=== PATIENT | female | born 1940 | race Caucasian/White ===

== ENCOUNTER → 2016-08-30 | Outpatient (CLI) | payer OTHER, MEDICARE ==
[~2016-08-30] VITALS: Ht 162.6 cm; Wt 62.6 kg
[~2016-08-30] MED LIST: ADULT LOW DOSE81 MG PO; ALEVE220 MG PO; AMBIEN 10 MG TA10 MG PO; BUPROPION; COSOPT EYE DROPS5 ML OP; FISHOIL PO; FOSAMAX 70 MG T70 MG PO; HYDROCODONE-AP1 EAC6 PO; IBUPROFEN 200200 M1 PO; MEDROLDOSEPACK PO; MELOXICAM7.5 MG PO; MOBIC7.5 MG PO; NAPROSYN500 MG PO; PAXIL10 MG PO; PAXIL20 MG PO; VITAMIN D1000 UNI1 PO; XANAX 0.5 MG0.5 M1 PO; ZOCOR 20 MG TAB20 M1 PO
[2016-08-30 09:46] VITALS: BP 139/81
== END ==
LOC: PAIN 06:55
DX: M54.5 Low back pain (principal); Z90.49 Acquired absence of other specified parts of digestive tract; Z90.721 Acquired absence of ovaries, unilateral

== ENCOUNTER → 2016-09-13 | Outpatient (CLI) | payer OTHER, MEDICARE ==
[~2016-09-13] VITALS: Ht 162.6 cm; Wt 63.0 kg
[2016-09-13 09:52] VITALS: BP 148/82
== END ==
LOC: PAIN 07:06
DX: M12.88 Other specific arthropathies, not elsewhere classified, other specified site (principal); Z79.899 Other long term (current) drug therapy

== ENCOUNTER → 2017-12-21 | Outpatient (CLI) | payer OTHER, MEDICARE ==
[~2017-12-21] MED LIST changes: +OSELB75 PO
== END ==
LOC: RAD 14:58
DX: S13.4XXA Sprain of ligaments of cervical spine, initial encounter (principal); M50.322 Other cervical disc degeneration at C5-C6 level; V89.2XXA Person injured in unspecified motor-vehicle accident, traffic, initial encounter; Y93.89 Activity, other specified; Y92.89 Other specified places as the place of occurrence of the external cause; Y99.8 Other external cause status

== ENCOUNTER → 2018-09-03 | Outpatient (CLI) | payer OTHER, MEDICARE ==
--- NOTE | 2018-09-03 09:58 | 2DMMODE ---
[facility] [place] [address] 2 D/M-MODE ECHOCARDIOGRAM Name: PASQUALE SMITH Room #: REG [facility]#: [id number] ������������� Admission: 09/03/18 ������������� Attend Phys: Tenzin Oro Discharge: ��� ������������� ��� Date of : 44 Date of Service: 09/03/18 0957 �� Report #: [id number] �������� ��������������������������������������������[id number] THIS REPORT FOR: //name// APPROVED REPORT Study performed: 09/03/2018 09:25:46 EXAM: Comprehensive 2D, Doppler, and color-flow Echocardiogram Patient Location: Out-Patient Status: routine BSA: 1.67 HR: 87 bpm BP: 126/80 mmHg Rhythm: NSR Other Information Study Quality: Adequate/lung artifact Indications Palpitations 2D Dimensions RVDd: 31.87 mm IVSd: 11.46 (7-11mm) LVOT Diam: 20.26 (18-24mm) LVDd: 34.01 mm PWd: 9.92 (7-11mm) Ascending Ao: 25.20 (22-36mm) LVDs: 23.70 (25-40mm) Aortic Root: 28.81 mm Volumes Left Atrial Volume (Systole) Single Plane 4CH: 22.82 mL Single Plane 2CH: 20.55 mL LA ESV Index: 14.00 mL/m2 Aortic Valve AoV Peak Edvin.: 1.06 m/s AO Peak Gr.: 4.47 mmHg LVOT Max P.68 mmHg LVOT Max V: 0.82 m/s CARMINE Vmax: 2.49 cm2 Mitral Valve E/A Ratio: 0.6 MV Decel. Time: 248.45 ms MV E Max Edvin.: 0.53 m/s [facility] [address] [address] 2 D/M-MODE ECHOCARDIOGRAM Name: SARAH,PASQUALE ALBA Room #: [employer]#: [id number] ������������� Admission: 09/03/18 ������������� Attend Phys: Tenzin Oro Discharge: ��� ������������� ��� Date of : 44 Date of Service: 09/03/18 0957 �� Report #: [id number] �������� ��������������������������������������������[id number] MV A Edvin.: 0.85 m/s MV PHT: 72.05 ms IVRT: 100.35 ms Pulmonary Valve PV Peak Edvin.: 0.87 m/s PV Peak Gr.: 3.06 mmHg Pulmonary Vein P Vein S: 0.69 m/s P Vein D: 0.39 m/s P Vein S/D Ratio: 1.77 Tricuspid Valve TR Peak Edvin.: 2.28 m/s RAP Estimate: 5.00 mmHg TR Peak Gr.: 20.80 mmHg PA Pressure: 26.00 mmHg Left Ventricle The left ventricle is normal size. There is normal LV segmental wall motion. There is normal left ventricular wall thickness. Left ventricular systolic function is normal. LVEF is 55-60%. Mild diastolic dysfunction is present (impaired relaxation pattern). Right Ventricle The right ventricle is normal size. The right ventricular systolic function is normal. Atria The left atrium size is normal. The right atrium size is normal. Aortic Valve The aortic valve is normal in structure. No aortic regurgitation is present. There is no aortic valvular stenosis. Mitral Valve The mitral valve is normal in structure. There is no mitral valve regurgitation noted. No evidence of mitral valve stenosis. Tricuspid Valve The tricuspid valve is normal in structure. Trace tricuspid regurgitation. Estimated PAP is 25mmHg. Pulmonic Valve The pulmonary valve is normal in structure. Trace pulmonic [facility] [address] [address] 2 D/M-MODE ECHOCARDIOGRAM Name: PASQUALE SMITH [id number] ������������� Admission: 09/03/18 ������������� Attend Phys: Tenzin Oro Discharge: ��� ������������� ��� Date of : 44 Date of Service: 09/03/18 0957 �� Report #: [id number] �������� ��������������������������������������������[id number] regurgitation. Great Vessels The aortic root is normal in size. The ascending aorta is normal in size. IVC is normal in size and collapses >50% with inspiration. Pericardium There is no pericardial effusion. <Conclusion> Left ventricular systolic function is normal. There is normal LV segmental wall motion. LVEF is 55-60%. Mild diastolic dysfunction Structural valvular disease was absent. No significant regurgitant or stenotic lesions. Trace tricuspid regurgitation. Estimated pulmonary artery pressure of 25mmHg. There is no pericardial effusion. ��������������������������������������������� <ELECTRONICALLY SIGNED> ���������������������������������������� By: Jaylan Mcgee MD, [facility] ��������������������������������������������� 09/03/18 0957 6 6 Jaylan Mcgee MD, FAC /INF
== END ==
LOC: CV 09:09
DX: R00.2 Palpitations (principal); Z88.8 Allergy status to other drugs, medicaments and biological substances

== ENCOUNTER 2018-09-17 19:52 | Inpatient (IN) | payer OTHER, MEDICARE ==
[~2018-09-17] VITALS: Ht 154.9 cm; Wt 62.6 kg
[~2018-09-17 19:52] MED LIST changes: -CARDIZEM CD120 MG PO; -DOXYCYCLINE HYC50 MG PO; -HYDROCORTISONE30 G9 TOP; -NORVASC10 MG PO; -OMEPRAZOLE40 MG PO; -PEPCID20 MG PO; -PREDNISONE 20 M20 M1 PO
[2018-09-17 20:21] VITALS: BP 142/57
[2018-09-17] MEDS ORDERED: CARDIZEM CD120 MG PO ×2 (20:27)
[2018-09-17 20:46] LABS: ABSOLUTE NEUTROPHILS 11.9 thou/uL (1.4-8.2); BASOPHILS 0.4 % (0.0-2.0); HEMATOCRIT 34.8 % (37.0-47.0); HEMOGLOBIN 11.8 gm/dL (12.0-15.0); LYMPHOCYTES 5.2 % (24.0-44.0); MCH 31.2 pg (26.0-34.0); MCHC 33.9 g/dL (28.0-37.0); MCV 92.1 fL (80.0-100.0); MONOCYTES 3.4 % (1.0-8.0); PLATELET COUNT 193 thou/uL (150-400); RBC 3.78 mil/uL (4.20-5.00); RDW 13.1 % (10.5-14.5); WBC 13.3 thou/uL (4.0-11.0)
[2018-09-17 20:49] LABS: URINE BILIRUBIN NEGATIVE (Negative); URINE BLOOD 1+ (Negative); URINE CLARITY CLEAR; URINE COLOR YELLOW; URINE GLUCOSE-RANDOM* NEGATIVE (Negative); URINE KETONES NEGATIVE (Negative); URINE LEUKOCYTES-REFLEX NEGATIVE (Negative); URINE NITRITE-REFLEX NEGATIVE (Negative); URINE PROTEIN (DIPSTICK) 2+ (Negative); URINE SPECIFIC GRAVITY 1.025 (1.005-1.035); URINE UROBILINOGEN 0.2 E.U./dl (0.2-1.0)
[2018-09-17 20:54] LABS: CALCIUM 8.9 mg/dL (8.5-10.1); POTASSIUM 3.3 mmol/L (3.5-5.1)
[2018-09-17 21:01] LABS: ALBUMIN 3.2 g/dL (3.4-5.0); TOTAL BILIRUBIN 0.7 mg/dL (<0.1-1.0); TOTAL PROTEIN 6.6 g/dL (6.4-8.2)
[2018-09-17 21:03] LABS: CRYSTALS None Seen /LPF (None Seen); HYALINE CASTS 0-3 Few /LPF (None Seen); SQUAMOUS 4-10 Moderate /LPF (0-3)
[2018-09-17 21:04] LABS: URINE RBC 3-10 Few /HPF (0-2); URINE WBC-REFLEX None Seen /HPF (0-5)
[2018-09-17 22:44] VITALS: BP 123/48
[2018-09-17 23:02] VITALS: BP 136/55
--- NOTE | 2018-09-17 23:37 | NUR ---
PT ARRIVED TO THE UNIT VIA CART ACCOMPANIED BY ED RN, ON ROOM AIR, NO SOB NOTED, VSS ASIDE FROM HEART RATE OF 113,LUNGS CLEAR, PT ALERT/ORIENTED, ADMISSION ASSESSMENT AND HISTORY OBTAINED, WILL PROVIDE WITH DAUGHTER'S PHONE NUMBER TOMORROW, ASSISTED TO THE BATHROOM, GAIT STEADY, VOIDED, GIVEN SANDWICH, TOLERATING IT, DENIES PAIN NOR ITCH TO HER RASHES, ENC TO DRINK MORE WATER, DISCUSSED LAB RESULTS WITH HER, GIVEN ROOM/CALL LIGHT ORIENTATION, COMPLIANT WITH CARE.
[2018-09-18] MEDS ORDERED: CARDIZEM CD120 MG PO ×2 (04:25)
[2018-09-18] MEDS ORDERED: OMEPRAZOLE40 MG PO ×2 (04:27)
[2018-09-18 04:41] VITALS: BP 105/76
[2018-09-18 05:53] LABS: HEMATOCRIT 31.1 % (37.0-47.0); HEMOGLOBIN 10.4 gm/dL (12.0-15.0); MCH 31.2 pg (26.0-34.0); MCHC 33.5 g/dL (28.0-37.0); RBC 3.34 mil/uL (4.20-5.00); RDW 13.6 % (10.5-14.5); WBC 12.3 thou/uL (4.0-11.0)
[2018-09-18 06:02] LABS: CALCIUM 7.7 mg/dL (8.5-10.1); CREATININE 0.9 mg/dL (0.6-1.0); MAGNESIUM 1.7 mg/dL (1.8-2.4)
--- NOTE | 2018-09-18 06:52 | NUR ---
ALL CONSULTS CALLED TO ANSWERING SERVICE.
[2018-09-18 07:24] VITALS: BP 129/73
--- NOTE | 2018-09-18 07:34 | EKG ---
[place] [address] [facility] [place] [address] ELECTROCARDIOGRAM REPORT Name: SARAHPASQUALE WILLIS Room #: 357-P ADM IN M.R.#: [id number] ������������������ Admission: 09/17/18 ������������������ Attend Phys: Esvin Cagle MD Discharge: ������������������ Date of : 44 Report #: [id number] ����������������������������������������������������������������� [id number] THIS REPORT FOR: //name// [facility] ED Test Date: 2018-09-17 Test Time: 20:32:24 Pat Name: PASQUALE SMITH Department: Room: 357 Gender: F [employer]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1940 Requested By: Rudy More Order Number: [id number] MD: Jaylan Mcgee Measurements Intervals [place] Rate: 109 P: 75 MI: 152 QRS: 29 QRSD: 135 T: -45 QT: 324 QTc: 437 Interpretive Statements Sinus tachycardia Right bundle branch block No previous ECG available for comparison Electronically Signed On 09-18-2018 7:34:39 CDT by Jaylan Mcgee [email or web address] ��������������������������������������������� <ELECTRONICALLY SIGNED> ���������������������������������������� By: Jaylan Mcgee MD, [facility] ��������������������������������������������� 09/18/18 0734 31 31 Jaylan Mcgee MD, FACC /EPI
--- NOTE | 2018-09-18 10:46 | NUR ---
Chart reviewed and case discussed with the care team. Pt lives indep with her spouse. 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 She and her spouse recently traveled to [place]. They live in a [place] with no steps. She has insurance in place for f/u care and per pcp is Dr. Hairston. No dc planning needs identified at this time. Derm/ID consults pending. Will remain available should dc needs arise.
[2018-09-18 11:41] VITALS: BP 142/70
[2018-09-18 16:23] VITALS: BP 135/56
--- NOTE | 2018-09-18 18:43 | NUR ---
AAOX4 VERY PLEASANT. STEADY GAIT UP IN ROOM WITH GOOD TOLERATION OF ACTIIVTY. GOOD APPETITE FOR MEALS. IV DISCONTINUED DUE TO INFILTATION. DENIES PAIN. RASH ALL OVER BODY RED NOT RAISED DENIES PAIN OR DISCONFORT.
[2018-09-18 19:15] VITALS: BP 141/66
[2018-09-18 22:07] LABS: COMPLEMENT-C4 27 mg/dL (14-44)
[2018-09-19 00:10] LABS: GLYCOHEMOGLOBIN (HGB A1C) 5.7 % (4.8-5.6)
[2018-09-19 03:45] VITALS: BP 131/58
[2018-09-19 07:11] VITALS: BP 121/69
[2018-09-19] MEDS ORDERED: DOXYCYCLINE HYC50 MG PO ×2 (08:21)
[2018-09-19] MEDS ORDERED: PEPCID20 MG PO ×2 (08:22)
[2018-09-19] MEDS ORDERED: PREDNISONE 20 M20 M1 PO ×2 (08:23)
[2018-09-19] MEDS ORDERED: HYDROCORTISONE30 G9 TOP ×2 (08:24)
[2018-09-19] MEDS ORDERED: NORVASC10 MG PO ×2 (08:25)
[2018-09-19 11:10] LABS: HEMATOLOGY COMMENTS Note: (()); HEMOGLOBIN 10.3 g/dL (11.1-15.9)
[2018-09-19 13:13] LABS: HIV ANTIBODY Non Reactive (Non Reactive)
--- NOTE | 2018-09-19 14:50 | NUR ---
Assumed care of pt at 0700. Pt has been up ad sarah with steady gait in room. Pt's only complaint of pain has been LEIVA which PRN meds were given to treat. Unknown rash remains profuse over extremities and trunk. Pt denies complaints r/t rash. Pt is positive in outlook but anticipating DC. Hospitalist rounded and DC is anticipated for later today. Still awaiting ID and Derm to sign off on case. Will continue to monitor and assess. Pt is progressing toward POC goals.
[2018-09-19 14:59] VITALS: BP 142/69
--- NOTE | 2018-09-19 15:40 | NUR ---
DISCHARGE NOTE: SW reviewed chart and spoke with nursing and attending physician. Pt is medically stable for discharge home today. No SW interventions identified at this time, but is available to assist should needs arise.
[2018-09-19 18:08] LABS: SYPHILIS AB Negative (Negative)
[2018-09-19 19:50] VITALS: BP 142/69; BP 145/66
--- NOTE | 2018-09-19 20:07 | HC ---
[place] [address] CONSULTATION Name: SARAHPASQUALE ALBA Room #: 357-P ADM IN M.R.#: [id number] Admission: 09/17/18 ������������������ Attend Phys: Ann Doe Discharge: ������������������ Date of : 44 Report #: [id number] THIS REPORT FOR: //name// CC: Esvin Schrader DATE OF SERVICE: 09/18/2018 INFECTIOUS DISEASES CONSULTATION REASON FOR CONSULTATION: I was asked to evaluate concerning fever and rash. HISTORY OF PRESENT ILLNESS: The patient was a 78-year-old who has reported a 10-day history of low-grade fever, rash initially with headache. Rash has persisted. Persisted to fever up to 103 degrees. She started Cardizem around the time of her rash, but she could not specify for sure that the rash was after starting the Cardizem. After 4 doses, she stopped it. She has had no travel outside the [place]. She has gone to [place], [place] approximately 6 weeks ago. She does work out in her garden. She reports no specific tick exposure. She has had no photophobia. She thinks she has had a couple of lesions in her mouth. No vaginal issues. No cough or sputum production. No shortness of breath, PND or orthopnea. No peripheral edema noted. Mild nausea and one episode of vomiting in the past week. No diarrhea. No dysuria or frequency or back or flank pain. Overall, she states she feels better today than she has in the past week. Following admission, she had temperature up to 39.3 degrees. She was given doxycycline and Solu-Medrol. REVIEW OF SYSTEMS: Ten-point review was negative, other than what is described above. ALLERGIES: FLUOXETINE. MEDICATIONS: As noted on her MAR, which were reviewed. She did receive one dose of ceftriaxone. PAST MEDICAL HISTORY: Degenerative arthritis, left ovarian resection, IBS, cholecystectomy, hypertension and hyperlipidemia. Supraventricular tachycardia was why she was placed on diltiazem. FAMILY HISTORY: Noncontributory. 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 He has had no issues with fever or rash. 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 [address] [place] [address] CONSULTATION Name: SARAHPASQUALE Room #: [address] [place] [address] IN M.R.#: [id number] Admission: 09/17/18 ������������������ Attend Phys: Ann Doe Discharge: ������������������ Date of : 44 Report #: [id number] PHYSICAL EXAMINATION: VITAL SIGNS: She was afebrile, hemodynamically stable. GENERAL: Alert and cooperative. She was up in her chair. Mental status was normal. Stance and gait were normal. 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 It was full body, included palms and soles. HEENT: Mild conjunctivitis. No oral lesions noted. LYMPHATIC: No palpable adenopathy. LUNGS: Clear. HEART: Regular, without murmur, gallop or rub. ABDOMEN: Soft, nontender. No hepatosplenomegaly or mass appreciated. GENITALIA: Rectal examination not performed. EXTREMITIES: Without clubbing, cyanosis or edema. No evidence of synovitis. NEUROLOGIC: Cranial nerves, strength in the upper and lower extremities, sensation in upper and lower extremities all normal. PSYCHIATRIC: Mood normal. LABORATORY DATA: Laboratory studies include sodium 140, potassium 4, bicarbonate 24 and creatinine 0.9. AST 43. Hemoglobin 10.4, white count 12.3 and platelet count 166,000. Lactate 1.6. CRP 143. Sedimentation rate 20. Urinalysis positive for bacteria. Chest x-ray, left lower lobe atelectasis. Blood and urine cultures are pending. Serology for Jarrell spotted fever, Ehrlichia, syphilis are pending. IMPRESSION: A 78-year-old with fever and rash. Considerations include viral etiology rickettsial disease, drug reaction to Cardizem, less likely vasculitis. RECOMMENDATIONS: Agree with current management with doxycycline and prednisone. We will check her serologies when available. If any worsening in her condition, we will proceed with skin biopsy. ��������������������������������������������� <ELECTRONICALLY SIGNED> ���������������������������������������� By: Lonnie Carter MD ��������������������������������������������� 09/19/182006 1230 2218 Lonnie Carter MD /nt
--- NOTE | 2018-09-19 20:31 | NUR ---
PT MET WITH DR. PADILLA. BELONGINGS GATHERED TO SEND WITH PT. DC INFO, PRESCRIPTIONS, MEDICATION INFO ALL REVIEWED WITH PT. PT'S IV AND TELE DC'D. PT TO DC HOME WITH AND TO F/U WITH PCP AND DR. PADILLA WITHIN 1 WEEK. PT TO LEAVE UNIT VIA W/C ESCORTED BY STAFF TO BE TRANSPORTED VIA PRIVATE VEHICLE.
[2018-09-23 14:06] LABS: COMPLEMENT-C3 144 mg/dL (82-167)
== END 2018-09-19 21:00 | disposition home or self-care (01) | DRG 607 ==
LOC: ER 19:52 → 3W 21:55 → EROBS 21:55 → 3W 22:46
PROVIDERS: Emergency Medicine; Nurse Practitioner Acute Care; Specialist; ADMIT Hospitalist
DX: L27.0 Generalized skin eruption due to drugs and medicaments taken internally (principal); R65.10 Systemic inflammatory response syndrome (SIRS) of non-infectious origin without acute organ dysfunction; I47.1 Supraventricular tachycardia; L20.9 Atopic dermatitis, unspecified; M19.90 Unspecified osteoarthritis, unspecified site; E78.5 Hyperlipidemia, unspecified; I10 Essential (primary) hypertension; E87.6 Hypokalemia; R73.9 Hyperglycemia, unspecified; E83.42 Hypomagnesemia; I77.6 Arteritis, unspecified; K21.9 Gastro-esophageal reflux disease without esophagitis; Z90.49 Acquired absence of other specified parts of digestive tract; Z88.8 Allergy status to other drugs, medicaments and biological substances; Z79.82 Long term (current) use of aspirin; Z79.899 Other long term (current) drug therapy; Z98.49 Cataract extraction status, unspecified eye; W57.XXXA Bitten or stung by nonvenomous insect and other nonvenomous arthropods, initial encounter; Y92.89 Other specified places as the place of occurrence of the external cause; Y99.8 Other external cause status
CPT/HCPCS: 10879

== ENCOUNTER → 2018-09-17 | Outpatient (CLI) | payer OTHER, MEDICARE ==
[~2018-09-17] MED LIST changes: +CARDIZEM CD120 MG PO; +DOXYCYCLINE HYC50 MG PO; +HYDROCORTISONE30 G9 TOP; +NORVASC10 MG PO; +OMEPRAZOLE40 MG PO; +PEPCID20 MG PO; +PREDNISONE 20 M20 M1 PO
== END ==
LOC: RAD 11:02
DX: R50.9 Fever, unspecified (principal); D72.829 Elevated white blood cell count, unspecified

== ENCOUNTER → 2019-12-11 | Outpatient (CLI) | payer OTHER, MEDICARE ==
[~2019-12-11] MED LIST changes: +CARDIZEM CD120 MG PO; +DOXYCYCLINE HYC50 MG PO; +HYDROCORTISONE30 G9 TOP; +NORVASC10 MG PO; +OMEPRAZOLE40 MG PO; +PEPCID20 MG PO; +PREDNISONE 20 M20 M1 PO
== END ==
LOC: SJCVC 13:03
PROVIDERS: ATTEND Internal Medicine Cardiovascular Disease
DX: I45.10 Unspecified right bundle-branch block (principal); I47.1 Supraventricular tachycardia; I49.3 Ventricular premature depolarization; E78.00 Pure hypercholesterolemia, unspecified

== ENCOUNTER → 2020-12-28 | Outpatient (CLI) | payer OTHER, MEDICARE | LOC: SJCVC 12:57 | PROVIDERS: ATTEND Internal Medicine Cardiovascular Disease | DX: R94.31 Abnormal electrocardiogram [ECG] [EKG] (principal); I45.10 Unspecified right bundle-branch block; I47.1 Supraventricular tachycardia; F41.9 Anxiety disorder, unspecified; F32.9 Major depressive disorder, single episode, unspecified; Z82.49 Family history of ischemic heart disease and other diseases of the circulatory system; Z79.82 Long term (current) use of aspirin; Z79.899 Other long term (current) drug therapy; Z88.8 Allergy status to other drugs, medicaments and biological substances; Z72.89 Other problems related to lifestyle ==

== ENCOUNTER → 2021-03-08 | Outpatient (CLI) | payer OTHER | LOC: CAT 14:39 | PROVIDERS: ATTEND Family Medicine | DX: Z13.6 Encounter for screening for cardiovascular disorders (principal); I25.10 Atherosclerotic heart disease of native coronary artery without angina pectoris; E78.00 Pure hypercholesterolemia, unspecified ==

== ENCOUNTER → 2021-03-08 | Outpatient (CLI) | payer OTHER, MEDICARE | LOC: CAT 10:59 → NUC 13:31 → CAT 13:31 | PROVIDERS: ATTEND Family Medicine | DX: M85.88 Other specified disorders of bone density and structure, other site (principal) ==